=== PATIENT | female | born 1975 | race African-American/Black ===

== ENCOUNTER 2017-08-10 23:48 | Emergency (ER) | payer MEDICAID | END 2017-08-11 01:15 | disposition home or self-care (01) | LOC: D.ER 23:48 | DX: S90.31XA Contusion of right foot, initial encounter (principal); W31.89XA Contact with other specified machinery, initial encounter; Y93.89 Activity, other specified; Y92.89 Other specified places as the place of occurrence of the external cause; M60.871 Other myositis, right ankle and foot; I10 Essential (primary) hypertension ==

== ENCOUNTER 2017-11-24 12:12 | Emergency (ER) | payer MEDICAID | END 2017-11-24 13:43 | disposition home or self-care (01) | LOC: D.ER 12:12 | DX: Z76.0 Encounter for issue of repeat prescription (principal); R00.0 Tachycardia, unspecified; I10 Essential (primary) hypertension ==

== ENCOUNTER 2019-02-23 12:15 | Emergency (ER) | payer SELFPAY ==
[~2019-02-23] VITALS: Ht 157.5 cm; Wt 64.1 kg
[2019-02-23 12:17] VITALS: Ht 157.5 cm; Wt 64.1 kg
[2019-02-23] MEDS ORDERED: METOPROLOL TART50 MG PO (12:25)
[2019-02-23] MEDS ORDERED: PENICILLIN V P500 MG PO (12:59)
[2019-02-23] MEDS ORDERED: EC-NAPROSYN500 MG PO (13:01)
[2019-02-23 13:35] VITALS: BP 127/88
== END 2019-02-23 13:30 | disposition home or self-care (01) ==
LOC: D.ER 12:15
DX: K02.9 Dental caries, unspecified (principal); K04.7 Periapical abscess without sinus

== ENCOUNTER 2019-05-04 13:01 | Emergency (ER) | payer SELFPAY ==
[~2019-05-04] VITALS: Ht 157.5 cm; Wt 63.6 kg
[~2019-05-04 13:01] MED LIST: EC-NAPROSYN500 MG PO; METOPROLOL TART50 MG PO; PENICILLIN V P500 MG PO
[2019-05-04 13:13] VITALS: Ht 157.5 cm; Wt 63.6 kg
[2019-05-04] MEDS ORDERED: ACETAMINOPHEN500 M1 PO (15:25)
[2019-05-04] MEDS ORDERED: CYCLOBENZAPRINE10 MG PO (15:25)
[2019-05-04] MEDS ORDERED: IBUPROFEN800 MG PO (15:25)
[2019-05-04 15:45] VITALS: BP 151/83
== END 2019-05-04 15:45 | disposition home or self-care (01) ==
LOC: D.ER 13:01
DX: M94.0 Chondrocostal junction syndrome [Tietze] (principal)

== ENCOUNTER 2019-06-22 06:33 | Emergency (ER) | payer SELFPAY ==
[~2019-06-22] VITALS: Ht 157.5 cm; Wt 64.5 kg
[~2019-06-22 06:33] MED LIST changes: +ACETAMINOPHEN500 M1 PO; +CYCLOBENZAPRINE10 MG PO; +IBUPROFEN800 MG PO
[2019-06-22 06:39] VITALS: Ht 157.5 cm; Wt 64.5 kg
[2019-06-22 07:20] LABS: BASOPHILS 0.1 % (0-2); EOSINOPHILS 1.2 % (0-7); HEMATOCRIT 42.2 % (36.0-48.0); HEMOGLOBIN 14.1 g/dL (12-16); IMMATURE GRANULOCYTES 0.2 % (0-5); LYMPHOCYTES 45.2 % (15-50); MCH 32.1 pg (26.0-34.0); MCHC 33.4 g/dL (31.0-37.0); MCV 96.1 fL (80.0-100.0); MEAN PLATELET VOLUME 8.6 fL (7.4-10.4); MONOCYTES 8.6 % (2-11); NEUTROPHILS 44.7 % (40-80); PLATELET COUNT 190 10x3/uL (130-400); RBC 4.39 10x6/uL (4.00-5.40); RDW 14.4 % (11.5-14.5); WBC 13.6 10x3/uL (4.8-10.8)
[2019-06-22 07:23] LABS: CALC OSMOLALITY 278 mosm/kg (275-300); CARBON DIOXIDE 27.7 mmol/L (21.0-32.0); CHLORIDE - SERUM 104 mmol/L (98-107); CREATININE - SERUM 0.8 mg/dL (0.6-1.3); GLUCOSE 88 mg/dL (74-106); POTASSIUM - SERUM 3.6 mmol/L (3.5-5.1); SODIUM 140 mmol/L (136-145); UREA NITROGEN 16 mg/dL (7-18); eGFR NON AFRICAN AMERICAN 84 mL/min (90-120)
[2019-06-22 07:38] LABS: ALKALINE PHOSPHATASE 52 U/L (46-116); ALT (SGPT) 15 U/L (10-68); BILIRUBIN - TOTAL 0.31 mg/dL (0.2-1.3); CKMB 0.5 U/L (0.0-3.6); CREATINE KINASE 95 UL (21-215); PROTEIN - SERUM 7.9 g/dL (6.4-8.2)
[2019-06-22 07:43] LABS: TROPONIN-I < 0.017 ng/mL (0.000-0.060)
[2019-06-22 07:52] LABS: INR 1.01 (0.85-1.17); PROTIME 12.8 SECONDS (11.6-15.0)
[2019-06-22] MEDS ORDERED: METOPROLOL TART50 MG PO (08:07)
[2019-06-22 08:28] VITALS: BP 158/88
== END 2019-06-22 08:30 | disposition home or self-care (01) ==
LOC: D.ER 06:33
PROVIDERS: Family Medicine
DX: I49.8 Other specified cardiac arrhythmias (principal); I10 Essential (primary) hypertension; F17.210 Nicotine dependence, cigarettes, uncomplicated